=== PATIENT | male | born 1950 | race Caucasian/White ===

== ENCOUNTER 2016-06-14 05:07 | Day surgery (SDC) | payer OTHER ==
[~2016-06-14] VITALS: Ht 172.7 cm; Wt 84.0 kg
[~2016-06-14 05:07] MED LIST: ASPIR 8181 M1 PO; CENTRUM SILVER1 EAC5 PO; EXFORGE HCT 101 EACH PO; FISH OIL + D31 EACH PO; FLONASE ALLERG9.9 ML BOTH NARES; FOLBIC RF TABL1 EACH PO; GLUCOSAMINE1000 MG PO; IBUPROFEN100 M1 PO; INDERAL20 MG PO; LIDEX 0.05% CRE60 GM TP; MAGNESIUM400 M1 PO; MELATIN3 MG PO; MOTRIN400 MG PO; MUCINEX1200 MG PO; PRAVACHOL20 MG PO; PRINIVIL20 MG PO; PROBIOTIC 5 BI1 EACH PO; PROZAC10 MG PO
[2016-06-14] MEDS ORDERED: PAXIL10 MG PO (05:51)
[2016-06-14 05:58] VITALS: BP 152/79
[2016-06-14 09:34] VITALS: BP 137/79
[2016-06-14 10:43] VITALS: BP 161/84
== END 2016-06-14 10:15 | disposition home or self-care (01) ==
LOC: SDC 05:07
DX: H35.342 Macular cyst, hole, or pseudohole, left eye (principal); I10 Essential (primary) hypertension; R73.03 Prediabetes; E78.5 Hyperlipidemia, unspecified; R00.1 Bradycardia, unspecified
CPT/HCPCS: J0690; J3300